=== PATIENT | female | born 2000 | race Caucasian/White ===

== ENCOUNTER 2019-03-02 10:05 | Emergency (ER) | payer BC ==
--- NOTE | 2019-03-02 10:37 | UC ---
Abdominal Pain Female HPI - HPI Summary HPI Summary: Patient is 18-year-old female presenting with right lower abdominal pain that began this morning when she woke up. She took some ibuprofen but as she was walking to class the pain became sharper. She now describes it as a "soreness." Pain is worse with ambulating and better with lying down. Does not radiate. Denies fever, chills, nausea, vomiting. Denies urinary symptoms. Denies blood in the stool or urine. Patient states she has a Mirena and does not get regular periods. History of ruptured ovarian cysts. Last ruptured ovarian cyst was 3 years ago. States this pain feels like that pain. She also states she had sexual intercourse with her boyfriend last night and is concerned it may be related. Patient still eating and drinking well. - History of Current Complaint Chief Complaint: UCAbdominalPain Stated Complaint: LOWER ABD PAIN Hx Obtained From: Patient Hx Last Menstrual Period: no periods Onset/Duration: Sudden Onset Severity Currently: Severe Pain Intensity: 7 Allergies/Adverse Reactions: Allergies Allergy/AdvReac Type Severity Reaction Status Date / Time No Known Allergies Allergy Verified 03/02/19 10:24 Home Medications: Home Medications Ibuprofen TAB* [Motrin TAB* 400 MG] 400 mg PO ONCE 03/02/19 [History Confirmed 03/02/19] PMH/Surg Hx/FS Hx/Imm Hx Previously Healthy: Yes Other GI/ History: Ovarian cysts - Surgical History Surgical History: Yes Surgery Procedure, Year, and Place: rhinoplasty - Family History Known Family History: Positive: Non-Contributory - Social History Alcohol Use: Weekly Substance Use Type: None Smoking Status (MU): Never Smoked Tobacco Review of Systems All Other Systems Reviewed And Are Negative: Yes Constitutional: Positive: Negative. Negative: Fever, Chills Respiratory: Positive: Negative. Negative: Shortness Of Breath Cardiovascular: Positive: Negative. Negative: Palpitations, Chest Pain Gastrointestinal: Positive: Abdominal Pain. Negative: Vomiting, Diarrhea, Nausea Genitourinary: Positive: Negative. Negative: Dysuria, Hematuria, Frequency, Urgency, Vaginal/Penile Burning Musculoskeletal: Positive: Negative Neurological: Positive: Negative Physical Exam Triage Information Reviewed: Yes Appearance: Well-Appearing, No Pain Distress, Well-Nourished Vital Signs: Initial Vital Signs Temp 97.7 F 03/02/19 10:25 Pulse 50 03/02/19 10:25 Resp 16 03/02/19 10:25 BP 111/56 03/02/19 10:25 Pulse Ox 100 03/02/19 10:25 Vital Signs Reviewed: Yes Eyes: Positive: Conjunctiva Clear ENT: Positive: Hearing grossly normal Neck: Positive: Supple Respiratory Exam: Normal Respiratory: Positive: Lungs clear, Normal breath sounds, No respiratory distress. Negative: Crackles, Rhonchi, Stridor, Wheezing Cardiovascular Exam: Normal Cardiovascular: Positive: RRR. Negative: Tachycardia Abdomen Description: Positive: Soft, Other: - tenderness to palpation of right iliac region. negative rovsings and psoas. Negative: Nontender, CVA Tenderness (R), CVA Tenderness (L), Distended, Guarding, McBurney's Point Tenderness Bowel Sounds: Positive: Present Neurological: Positive: Alert Psychological: Positive: Age Appropriate Behavior Skin Exam: Normal Diagnostics - Radiology us appendix Radiology Interpretation Completed By: Radiologist Summary of Radiographic Findings: IMPRESSION: THE APPENDIX WAS NOT VISUALIZED LIMITING THE STUDY, DEPENDING ON THE PATIENT'S CLINICAL STATUS CONSIDER A CT OF THE ABDOMEN AND PELVIS WITH INTRAVENOUS AND ORAL CONTRAST FOR FURTHER EVALUATION. us pelvis Radiology Interpretation Completed By: Radiologist Summary of Radiographic Findings: IMPRESSION: 1. 3.6 CM RIGHT OVARIAN CYST. 2. SMALL AMOUNT OF FREE INTRAPERITONEAL FLUID. 3. IUD IN NORMAL POSITION. Abd Pain Female Course/Dx - Course Course Of Treatment: Discussed ovarian cyst finding on ultrasound with the patient. Discussed likely ruptured cyst causing pain. Informed her that the pain should resolve within a couple days. Informed her that she may continue to take ibuprofen and rest. Informed her that the appendix was not visualized and is not likely the cause of her pain today. Instructed her to follow-up with her [facility]. Directed her to go to emergency room if she experiences fever, chills, nausea, vomiting, or severe pain. Discussed this patient with Dr. Andrea who agreed with the treatment plan. - Differential Dx/Diagnosis Provider Diagnosis: Right ovarian cyst Discharge ED - Sign-Out/Discharge Documenting (check all that apply): Patient Departure All imaging exams completed and their final reports reviewed: Yes - Discharge Plan Condition: Stable Disposition: HOME Patient Education Materials: Ruptured Ovarian Cyst (ED) Forms: *School Release Referrals: [facility] [Outside] - If Needed Additional Instructions: As discussed, you ultrasound showed a 3.6cm right ovarian cyst. This is likely the cause of your pain and should resolve within the next couple days. You may continue to rest and take ibuprofen for pain relief. Follow-up with [facility] or the referral listed if below for further evaluation if your symptoms persist. Go to the emergency room if you experience fever, chills, nausea, vomiting, or severe pain. - Billing Disposition and Condition Condition: STABLE Disposition: Home
== END 2019-03-02 13:22 | disposition home or self-care (01) ==
LOC: UCEAST 10:05
DX: N83.201 Unspecified ovarian cyst, right side (principal)
CPT/HCPCS: 76705; 76830; 81003; 84702; 99201; G0463